=== PATIENT | male | born 1985 | race Caucasian/White ===

== ENCOUNTER 2024-04-05 16:42 | Observation (INO) | payer OTHER ==
--- NOTE | 2024-04-05 18:07 | ED ---
General Adult HPI - General Chief complaint: Abdominal Pain Stated complaint: RT SIDE PAIN Time Seen by Provider: 04/05/24 17:52 Source: patient, RN notes reviewed Mode of arrival: ambulatory Limitations: no limitations - History of Present Illness Initial comments: Patient is a 38-year-old male present to the emergency department with concerns with abdominal discomfort. Onset was yesterday. Discomfort has been somewhat slowly worsening. Discomfort is occasionally positional. Discomfort does worsen with food. Patient did have a little bit of discomfort in the back yesterday however more in the front today and more right upper. Patient did goodwin ve nausea once. No vomiting. Patient may be a little bit constipated, did have a bowel movement today. No diarrhea. No fever. Patient states he does have a distant history of alcohol use - Related Data Allergies Allergy/AdvReac Type Severity Reaction Status Date / Time No Known Allergies Allergy Verified 04/05/24 16:48 Review of Systems ROS Statement: Those systems with pertinent positive or pertinent negative responses have been documented in the HPI. ROS Other: All systems not noted in ROS Statement are negative. Constitutional: Denies: fever Eyes: Denies: as per HPI ENT: Denies: ear pain Respiratory: Denies: cough, dyspnea Cardiovascular: Denies: chest pain Gastrointestinal: Reports: as per HPI, abdominal pain, nausea. Denies: vomiting, diarrhea Past Medical History Past Medical History: No Reported History Past Surgical History: No Surgical Hx Reported Smoking Status: Former smoker Past Alcohol Use History: Occasional Past Drug Use History: None Reported General Exam Limitations: no limitations General appearance: alert, in no apparent distress Head exam: Present: normocephalic Eye exam: Present: normal appearance Respiratory exam: Present: normal lung sounds bilaterally Cardiovascular Exam: Present: regular rate, normal rhythm, normal heart sounds Expanded Peripheral pulses: 2+: Posterior Tibialis (R), Posterior Tibialis (L) GI/Abdominal exam: Present: soft, tenderness (Moderate to severe tenderness right upper quadrant. Mild tenderness epigastric and right mid/lower), normal bowel sounds. Absent: distended, guarding, rebound, rigid, pulsatile mass Extremities exam: Present: normal inspection Back exam: Present: normal inspection. Absent: CVA tenderness (R) Neurological exam: Present: alert Psychiatric exam: Present: normal affect, normal mood Skin exam: Present: normal color Course Vital Signs 04/05/24 04/05/24 16:45 19:43 Temperature 97.8 F Pulse Rate 80 69 Respiratory 16 16 Rate Blood Pressure 160/105 136/77 O2 Sat by Pulse 99 97 Oximetry Medical Decision Making - Medical Decision Making Was pt. sent in by a medical professional or institution (, [facility], AIRCRAFT SYSTEMS TECHNICIAN, urgent care, hospital, or retirement...) When possible be specific @ -No Did you speak to anyone other than the patient for history (EMS, parent, family, police, friend...)? What history was obtained from this source @ -No Did you review nursing and triage notes (agree or disagree)? Why? @ -I reviewed and agree with nursing and triage notes Were old charts reviewed (outside hosp., previous admission, EMS record, old EKG, old radiological studies, urgent care reports/EKG's, retirement records)? Report findings @ -No old charts were reviewed Differential Diagnosis (chest pain, altered mental status, abdominal pain women, abdominal pain men, vaginal bleeding, weakness, fever, dyspnea, syncope, he adache, dizziness, GI bleed, back pain, seizure, CVA, palpatations, mental health, musculoskeletal)? @ -Differential Abdominal Pain Men: Appendicitis, cholecystitis, diverticulosis, ischemic bowel, pancreatitis, hepatitis, UTI, gastroenteritis, AAA, incarcerated hernia, bowel obstruction, constipation, inflammatory bowel, hepatitis, peptic ulcer disease, splenic infarction, perforated viscus, testicular torsion, this is not meant to be an all-inclusive list EKG interpreted by me (3pts min.). @ -As above X-rays interpreted by me (1pt min.). @ -None done CT interpreted by me (1pt min.). @ -CT scan abdomen pelvis does show some mild inflammatory changes near the head of the pancreas U/S interpreted by me (1pt. min.). @ -None done What testing was considered but not performed or refused? (CT, X-rays, U/S, labs)? Why? @ -Ultrasound of the gallbladder and pancreas will be added What meds were considered but not given or refused? Why? @ -None Did you discuss the management of the patient with other professionals (professionals i.e. ISAAC De Luna, AIRCRAFT SYSTEMS TECHNICIAN, lab, RT, psych nurse, social services counselor, source water protection specialist, teacher, housing management officer, telephonic case manager)? Give summary @ -Case discussed with Dr. Angulo who will admit covering hospital call Was smoking cessation discussed for >3mins.? @ -No Was critical care preformed (if so, how long)? @ -No Were there social determinants of health that impacted care today? How? (Homelessness, low income, unemployed, alcoholism, drug addiction, transportation, low edu. Level, literacy, decrease access to med. care, detention, rehab)? @ -No Was there de-escalation of care discussed even if they declined (Discuss DNR or withdrawal of care, Hospice)? DNR status @ -No What co-morbidities impacted this encounter? (DM, HTN, Smoking, COPD, CAD, Cancer, CVA, ARF, Chemo, Hep., AIDS, mental health diagnosis, sleep apnea, morbid obesity)? @ -Distant history of alcohol use Was patient admitted / discharged? Hospital course, mention meds given and route, prescriptions, significant lab abnormalities, going to OR and other pertinent info. @ -Patient presents with abdominal discomfort. CT scan showing mild inflammatory changes near the head of the pancreas. Patient will be admitted for further evaluation and consults. Admission orders written. Patient reevaluated and updated Undiagnosed new problem with uncertain prognosis? @ -No Drug Therapy requiring intensive monitoring for toxicity (Heparin, Nitro, Insulin, Cardizem)? @ -No Were any procedures done? @ -No Diagnosis/symptom? @ abdominal pain Acute, or Chronic, or Acute on Chronic? @ -Acute Uncomplicated (without systemic symptoms) or Complicated (systemic symptoms)? @ -Default Side effects of treatment? @ -No Exacerbation, Progression, or Severe Exacerbation? @ -No Poses a threat to life or bodily function? How? (Chest pain, [place], VA, pneumonia, PE, COPD, DKA, ARF, appy, cholecystitis, CVA, Diverticulitis, Homicidal, Suicidal, threat to staff... and all critical care pts) @ -Threat to pancreatic function - Lab Data Result diagrams: 04/05/24 18:31 04/05/24 18:31 Lab Results 04/05/24 04/05/24 04/05/24 Range/Units 18: 18:31 18:31 WBC 15.8 H (3.8-10.6) k/uL RBC 4.93 (4.30-5.90) m/uL Hgb 15.0 (13.0-17.5) gm/dL Hct 43.7 (39.0-53.0) % MCV 88.8 (80.0-100.0) fL MCH 30.4 (25.0-35.0) pg MCHC 34.3 (31.0-37.0) g/dL RDW 12.2 (11.5-15.5) % Plt Count 310 (150-450) k/uL MPV 6.2 Neutrophils % 76 % Lymphocytes % 17 % Monocytes % 5 % Eosinophils % 1 % Basophils % 0 % Neutrophils # 11.9 H (1.3-7.7) k/uL Lymphocytes # 2.6 (1.0-4.8) k/uL Monocytes # 0.7 (0-1.0) k/uL Eosinophils # 0.2 (0-0.7) k/uL Basophils # 0.1 (0-0.2) k/uL PT 9.8 L (10.0-12.5) sec INR 0.9 (<1.2) APTT 27.5 (22.0-30.0) sec Sodium 135 L (137-145) mmol/L Potassium 4.3 (3.5-5.1) mmol/L Chloride 104 (98-107) mmol/L Carbon Dioxide 24 (22-30) mmol/L Anion Gap 7 mmol/L BUN 19 (9-20) mg/dL Creatinine 0.69 (0.66-1.25) mg/dL Est GFR (CKD-EPI)AfAm >90 (>60 ml/min/1.73 sqM) Est GFR (CKD-EPI)NonAf >90 (>60 ml/min/1.73 sqM) Glucose 96 (74-99) mg/dL Calcium 9.4 (8.4-10.2) mg/dL Total Bilirubin 0.5 (0.2-1.3) mg/dL AST 34 (17-59) U/L ALT 33 (4-49) U/L Alkaline Phosphatase 107 (38-126) U/L Total Protein 7.6 (6.3-8.2) g/dL Albumin 4.8 (3.5-5.0) g/dL Amylase 59 (30-110) U/L Lipase 63 (23-300) U/L Urine Color Urine Appearance (Clear) Urine pH (5.0-8.0) Ur Specific [place] (1.001-1.035) Urine Protein (Negative) Urine Glucose (UA) (Negative) Urine Ketones (Negative) Urine Blood (Negative) Urine Nitrite (Negative) Urine Bilirubin (Negative) Urine Urobilinogen (<2.0) mg/dL Ur Leukocyte Esterase (Negative) 04/05/24 Range/Units 18:58 WBC (3.8-10.6) k/uL RBC (4.30-5.90) m/uL Hgb (13.0-17.5) gm/dL Hct (39.0-53.0) % MCV (80.0-100.0) fL MCH (25.0-35.0) pg MCHC (31.0-37.0) g/dL RDW (11.5-15.5) % Plt Count (150-450) k/uL MPV Neutrophils % % Lymphocytes % % Monocytes % % Eosinophils % % Basophils % % Neutrophils # (1.3-7.7) k/uL Lymphocytes # (1.0-4.8) k/uL Monocytes # (0-1.0) k/uL Eosinophils # (0-0.7) k/uL Basophils # (0-0.2) k/uL PT (10.0-12.5) sec INR (<1.2) APTT (22.0-30.0) sec Sodium (137-145) mmol/L Potassium (3.5-5.1) mmol/L Chloride (98-107) mmol/L Carbon Dioxide (22-30) mmol/L Anion Gap mmol/L BUN (9-20) mg/dL Creatinine (0.66-1.25) mg/dL Est GFR (CKD-EPI)AfAm (>60 ml/min/1.73 sqM) Est GFR (CKD-EPI)NonAf (>60 ml/min/1.73 sqM) Glucose (74-99) mg/dL Calcium (8.4-10.2) mg/dL Total Bilirubin (0.2-1.3) mg/dL AST (17-59) U/L ALT (4-49) U/L Alkaline Phosphatase (38-126) U/L Total Protein (6.3-8.2) g/dL Albumin (3.5-5.0) g/dL Amylase (30-110) U/L Lipase (23-300) U/L Urine Color Colorless Urine Appearance Clear (Clear) Urine pH 5.0 (5.0-8.0) Ur Specific [place] 1.014 (1.001-1.035) Urine Protein Negative (Negative) Urine Glucose (UA) Negative (Negative) Urine Ketones Negative (Negative) Urine Blood Negative (Negative) Urine Nitrite Negative (Negative) Urine Bilirubin Negative (Negative) Urine Urobilinogen <2.0 (<2.0) mg/dL Ur Leukocyte Esterase Negative (Negative) Disposition Clinical Impression: Abdominal pain Disposition: ADMITTED IP TO THIS HOSP Is patient prescribed a controlled substance at d/c from ED?: No Referrals: None,Stated [Primary Care Provider] - 1-2 days Time of Disposition: 20:03
[2024-04-05 18:42] LABS: Basophils # (A) 0.1 k/uL (0-0.2); Basophils % (A) 0 %; Eosinophils # (A) 0.2 k/uL (0-0.7); Eosinophils % (A) 1 %; HCT 43.7 % (39.0-53.0); Lymphocytes # (A) 2.6 k/uL (1.0-4.8); Lymphocytes % (A) 17 %; MCH 30.4 pg (25.0-35.0); MCHC 34.3 g/dL (31.0-37.0); MCV 88.8 fL (80.0-100.0); Mean Platelet Volume 6.2; Monocytes # (A) 0.7 k/uL (0-1.0); Monocytes % (A) 5 %; Neutrophils # (A) 11.9 k/uL (1.3-7.7); Neutrophils % (A) 76 %; Platelet Count 310 k/uL (150-450); RBC 4.93 m/uL (4.30-5.90); RDW 12.2 % (11.5-15.5); WBC 15.8 k/uL (3.8-10.6)
[2024-04-05 18:49] LABS: INR 0.9 (<1.2); Partial Thromboplastin Time 27.5 sec (22.0-30.0); Prothrombin Time 9.8 sec (10.0-12.5)
[2024-04-05] MEDS: METOCLOPRAMIDE 5 MG/ML 2 ML VIAL IVP STA (18:51)
[2024-04-05] MEDS: FAMOTIDINE 20 MG/2 ML VIAL IV STA (18:51)
[2024-04-05] MEDS: KETOROLAC 15 MG/ML 1 ML VIAL IVP STA (18:51)
[2024-04-05 18:52] LABS: ALT 33 U/L (4-49); AST 34 U/L (17-59); African American GFR (CKD) >90 (>60 ml/min/1.73 sqM); Albumin 4.8 g/dL (3.5-5.0); Alkaline Phosphatase 107 U/L (38-126); Amylase 59 U/L (30-110); Anion Gap 7 mmol/L; Blood Urea Nitrogen 19 mg/dL (9-20); Calcium 9.4 mg/dL (8.4-10.2); Carbon Dioxide 24 mmol/L (22-30); Chloride 104 mmol/L (98-107); Glucose 96 mg/dL (74-99); Lipase 63 U/L (23-300); Non-African American GFR(CKD) >90 (>60 ml/min/1.73 sqM); Potassium 4.3 mmol/L (3.5-5.1); Sodium 135 mmol/L (137-145); Total Bilirubin 0.5 mg/dL (0.2-1.3); Total Protein 7.6 g/dL (6.3-8.2)
--- NOTE | 2024-04-05 19:03 | CT ---
EXAMINATION TYPE: CT abdomen pelvis wo con DATE OF EXAM: 04/05/2024 6:51 PM COMPARISON: None available. CLINICAL INDICATION: Male, 38 years old with history of abdominal pain; Right side flank pain, consti pation TECHNIQUE: Axial CT abdomen pelvis wo con;Sagittal and coronal reformats were created on a separate workstation. CT DLP: 975.5 mGycm, Automated exposure control for dose reduction was used. FINDINGS: LOWER CHEST: Unremarkable ABDOMEN Intraparenchymal hypoattenuating suggesting steatosis. No discrete liver lesion within the limitation of noncontrast study. Spleen normal in size and morphology. No suspicious adrenal gland nodule. Subt le fat stranding/inflammation surrounding the region of the pancreatic head/uncinate process. Cannot evaluate for pancreatic necrosis given lack of IV contrast. Small bowel enteritis would be considered a less likely diagnostic differential consideration. No associated pancreatic ductal dilatation. No abnormal biliary ductal dilatation. No evidence of nephrolithiasis or urolithiasis. No significant hy dronephrosis or hydroureter. Abdominal aorta normal in caliber. Imaging through the gastrointestinal tract demonstrates moderate diffuse colonic stool burden. Coloni c diverticulosis without acute diverticulitis. No evidence of small bowel obstruction. Stomach underd istended but otherwise unremarkable. No evidence of significant free fluid or free air in the abdomen/pelvis. No pathologic retroperitonea l lymphadenopathy. Uterus bladder unremarkable. Prostate gland within normal limits for size. No acute osseous abnormality. IMPRESSION: 1. Subtle fat stranding/mesenteric inflammation surrounding the region of the pancreatic head/uncina te process, possibly reflecting acute interstitial edematous pancreatitis in the appropriate clinical setting. Recommend correlation with lipase values. 2. Hepatic steatosis. 3. Chronic diverticulosis. 4. No evidence of nephrolithiasis, urolithiasis or hydronephrosis. [facility], , 04/05/2024 7:00 PM
[2024-04-05 19:13] LABS: Appearance,Urine Clear (Clear); Bilirubin,Urine Negative (Negative); Blood,Urine Negative (Negative); Color,Urine Colorless; Glucose,Urine (UA) Negative (Negative); Ketones,Urine Negative (Negative); Leukocyte Esterase,Urine Negative (Negative); Nitrite,Urine Negative (Negative); Protein,Urine Negative (Negative); Specific Gravity,Urine 1.014 (1.001-1.035); Urobilinogen,Urine <2.0 mg/dL (<2.0)
[2024-04-05] MEDS ORDERED: NALOXONE 0.4 MG/ML 1 ML VIAL IV PRN (20:03)
[2024-04-05] MEDS ORDERED: HYDROmorphone 1 MG/ML 1 ML SYRINGE IVP PRN (20:03)
[2024-04-05] MEDS: PANTOPRAZOLE 40 MG/10 ML VIAL IV SCH (20:31)
[2024-04-05] MEDS: SODIUM CHLORIDE 0.9% 1,000 ML IV SCH (20:41)
[2024-04-05] MEDS: LACTATED RINGERS 1,000 ML IV SCH (20:42)
--- NOTE | 2024-04-05 21:01 | P.HPIM ---
History of Present Illness H&P Date: 04/05/24 History of present illness; 38-year-old man with no significant past medical history presents to the emergency department with new onset abdominal discomfort. Patient states the pain began yesterday and the discomfort has been continually worsening. He describes the discomfort as worsening with food, and occasionally related to position. He first noticed the pain yesterday in his back, however today it has been in the front of his abdomen. He states this morning it was his entire abdomen as the day progressed it was localized more so to the right side, right middle and lower quadrant of his abdomen specifically. He states that at its worst the pain was 8/10 however at this current moment he rates it as a 2/10. He notes that he feels as though he has been constipated, and has been unable to have a bowel movement for a few days even though he has been attempting to do so. He has never had symptoms similar to this before. He states that he was formerly a "very heavy" drinker in which he would drink 1/2 gallon every weekend, and some weeks he would drink on a daily basis. This period of his life lasted for 3+ years. Reports having quit heavy alcohol use several years ago. Patient has no current complaints at this time and has requested being able to eat some food. Labratory review: -WBCs 15.8, Hgb 15, hct 43.7, PLT 310; sodium 135, potassium 4.3, BUN 19, creatinine 0.69, AST 34, ALT 33, alkaline phosphatase 107, total bilirubin 0.5, amylase 59, lipase 63 -UA noncontributory Imaging: -CT abdomen/pelvis showed subtle fat stranding/mesenteric inflammation surrounding the region of the pancreatic head/uncinate process, possibly reflecting acute interstitial edematous pancreatitis in the appropriate clinical setting; hepatic steatosis; chronic diverticulosis; no evidence of nephrolithiasis, urolithiasis or hydronephrosis Vitals: -Blood pressure 136/77, heart rate 69, respiratory rate 16, SpO2 97% on room air Patient admitted to internal medicine service REVIEW OF SYSTEMS: CONSTITUTIONAL: No fever, no malaise, no fatigue. HEENT: No recent visual problems or hearing problems. Denied any sore throat. CARDIOVASCULAR: No chest pain, orthopnea, PND, no palpitations, no syncope. PULMONARY: No shortness of breath, no cough, no hemoptysis. GASTROINTESTINAL: No diarrhea. States on and off nausea for the past day. No vomiting. Endorses a couple of days of constipation. NEUROLOGICAL: No headaches, no weakness, no numbness. HEMATOLOGICAL: Denies any bleeding or petechiae. GENITOURINARY: Denies any burning micturition, frequency, or urgency. MUSCULOSKELETAL/RHEUMATOLOGICAL: Denies any joint pain, swelling, or any muscle pain. ENDOCRINE: Denies any polyuria or polydipsia. The rest of the 14-point review of systems is negative. PHYSICAL EXAMINATION: GENERAL: The patient is alert and oriented x3, not in any acute distress. Well developed, well nourished. HEENT: No scleral icterus. No conjunctival pallor. Normocephalic, atraumatic. CARDIOVASCULAR: S1 and S2 present. No murmurs, rubs, or gallops. PULMONARY: Chest is clear to auscultation, no wheezing or crackles. ABDOMEN: Soft, nondistended, normoactive bowel sounds. No palpable organomegaly. Tenderness to palpation on the right upper quadrant and right lower quadrant MUSCULOSKELETAL: No joint swelling or deformity. EXTREMITIES: No cyanosis, clubbing, or pedal edema. NEUROLOGICAL: Gross neurological examination did not reveal any focal deficits. SKIN: No rashes. Assessment and plan 38-year-old male with new onset abdominal discomfort presents to the emergency department for further evaluation. Discussed the patient with the emergency department and excepted the admission for further evaluation of this abdominal pain. # Abdominal pain, suspect acute pancreatitis -Amylase 59, lipase 63 -CT abdomen/pelvis showed subtle fat stranding/mesenteric inflammation surrounding the region of the pancreatic head/uncinate process, possibly reflecting acute interstitial edematous pancreatitis -Gallbladder ultrasound currently pending -Triglycerides currently pending -Continue with lactated Ringer's 130 cc/h -Monitor urine output (>0.51 cc/kg/h) -Currently on clear liquid diet; advance to full diet as soon as tolerated -Continue to monitor electrolytes -Continue pain control with Dilaudid as needed -Continue with Protonix 40 mg IV daily -Obtain GI consult and consider Gen Surg consult pending US #Constipation -Start patient on Miralax as needed GI prohylaxis: Protonix 40 mg IV daily DVT prophylaxis: Heparin Subq Dictation was produced using [employer] software. please excuse any grammatical, word or spelling errors. Past Medical History Past Medical History: No Reported History Past Surgical History: No Surgical Hx Reported Smoking Status: Former smoker Past Alcohol Use History: Occasional Past Drug Use History: None Reported Medications and Allergies Home Medications Medication Instructions Recorded Confirmed Type No Known Home Medications 04/05/24 04/05/24 History Allergies Allergy/AdvReac Type Severity Reaction Status Date / Time No Known Allergies Allergy Verified 04/05/24 20:44 Physical Exam Vitals: Vital Signs Temp Pulse Resp BP Pulse Ox 04/05/24 19:43 69 16 136/77 97 04/05/24 16:45 97.8 F 80 16 160/105 99 Intake and Output 04/05/24 04/05/24 04/05/24 06:59 14:59 22:59 Other: Weight 104.326 kg Results CBC & Chem 7: 04/05/24 18:31 04/05/24 18:31 Labs: Abnormal Lab Results - Last 24 Hours (Table) 04/05/24 04/05/24 04/05/24 Range/Units 18:31 18:31 18:31 WBC 15.8 H (3.8-10.6) k/uL Neutrophils # 11.9 H (1.3-7.7) k/uL PT 9.8 L (10.0-12.5) sec Sodium 135 L (137-145) mmol/L
--- NOTE | 2024-04-05 21:29 | US ---
EXAMINATION TYPE: US gallbladder DATE OF EXAM: 04/05/2024 COMPARISON: CT today CLINICAL INDICATION: Male, 38 years old with history of pain, include pancreas; Patient states right sided abd pain since today. Slight nausea TECHNIQUE: Grayscale and color Doppler imaging of the right upper quadrant was performed. FINDINGS: EXAM MEASUREMENTS: Liver Length: 14.2 cm Gallbladder Wall: 0.2 cm CBD: 0.3 cm Right Kidney: 10.5 x 4.9 x 5.3 cm NUTRITION TEACHER NOTES: slightly limited due to overlying bowel gas Pancreas: Visualized portions appear slightly echogenic. The joint is not well visualized due to sha dowing bowel gas. Liver: wnl Gallbladder: wnl Evidence for sonographic Marquez's sign: No CBD: wnl Right Kidney: wnl IMPRESSION: No sonographic evidence of an acute abnormality in the right upper quadrant. Pancreas not well visual ized due to shadowing bowel gas. Recommend correlation with lipase values if there is underlying clin ical concern for acute pancreatitis. [facility], , 04/05/2024 9:26 PM
[2024-04-05] MEDS: HEPARIN SODIUM,PORCINE 5,000 UNIT/ML 1 ML VIAL SQ SCH (23:21)
[2024-04-05] MEDS: HYDROmorphone 0.5 MG/0.5 ML SYRINGE IVP PRN (23:39)
[2024-04-06] MEDS: ONDANSETRON 4 MG/2 ML VIAL IVP PRN (04:26)
[2024-04-06] MEDS: polyethylene glycoL 3350 17 GM POWD.PACK PO SCH (08:26)
[2024-04-06] MEDS: ACETAMINOPHEN TAB 325 MG TAB PO PRN (08:30)
[2024-04-06 09:00] LABS: ALT 27 U/L (10-49); AST 28 U/L (14-35); Albumin 4.4 g/dL (3.8-4.9); Albumin/Globulin Ratio 1.83 Ratio (1.60-3.17); Alkaline Phosphatase 110 U/L (41-126); Amylase 59 U/L (23-121); BUN/Creat Ratio 18.25 Ratio (12.00-20.00); Blood Urea Nitrogen 14.6 mg/dL (9.0-27.0); Calcium 9.3 mg/dL (8.7-10.3); Carbon Dioxide 21.1 mmol/L (21.6-31.8); Chloride 105 mmol/L (96-109); Globulin 2.4 g/dL (1.6-3.3); Glucose 122 mg/dL (70-110); LDH 162 U/L (120-246); Lipase 25 U/L (14-60); Sodium 138 mmol/L (135-145); Total Bilirubin 0.4 mg/dL (0.3-1.2); Total Protein 6.8 g/dL (6.2-8.2)
[2024-04-06] MEDS: PROCHLORPERAZINE INJ 10 MG/2 ML VIAL IVP PRN (09:36)
[2024-04-06] MEDS: EZETIMIBE 10 MG TAB PO SCH (09:36)
[2024-04-06 10:18] LABS: Basophils # (A) 0.05 X 10*3/uL (0.00-0.10); Basophils % (A) 0.4 %; Eosinophils # (A) 0.11 X 10*3/uL (0.04-0.35); Eosinophils % (A) 0.8 %; HCT 42.6 % (39.6-50.0); HGB 14.8 g/dL (13.0-17.0); Lymphocytes % (A) 19.3 %; MCH 30.7 pg (27.0-32.0); MCHC 34.7 g/dL (32.0-37.0); MCV 88.4 FL (80.0-97.0); Mean Platelet Volume 8.9 FL (9.5-12.2); Monocytes # (A) 1.27 X 10*3/uL (0.20-1.00); Monocytes % (A) 9.1 %; NRBC Per 100 WBC 0 X 10*3/uL (0.00-0.01); Neutrophils # (A) 9.84 X 10*3/uL (1.80-7.70); Platelet Count 316 X 10*3/uL (140-440); RBC 4.82 X 10*6/uL (4.40-5.60); RDW 12.3 % (11.5-14.5); WBC 14.02 X 10*3/uL (4.50-10.00)
--- NOTE | 2024-04-06 11:31 | P.PN ---
Subjective Progress Note Date: 04/06/24 38-year-old man with no significant past medical history presents to the emergency department with new onset abdominal discomfort. Patient states the pain began yesterday and the discomfort has been continually worsening. He describes the discomfort as worsening with food, and occasionally related to pos ition. He first noticed the pain yesterday in his back, however today it has been in the front of his abdomen. He states this morning it was his entire abdomen as the day progressed it was localized more so to the right side, right middle and lower quadrant of his abdomen specifically. He states that at its worst the pain was 8/10 however at this current moment he rates it as a 2/10. He notes that he feels as though he has been constipated, and has been unable to have a bowel movement for a few days even though he has been attempting to do so. He has never had symptoms similar to this before. He states that he was formerly a "very heavy" drinker in which he would drink 1/2 gallon every weekend, and some weeks he would drink on a daily basis. This period of his life lasted for 3+ years. Reports having quit heavy alcohol use several years ago. Patient has no current complaints at this time and has requested being able to eat some food. Labratory review: -WBCs 15.8, Hgb 15, hct 43.7, PLT 310; sodium 135, potassium 4.3, BUN 19, creatinine 0.69, AST 34, ALT 33, alkaline phosphatase 107, total bilirubin 0.5, amylase 59, lipase 63 -UA noncontributory Imaging: -CT abdomen/pelvis showed subtle fat stranding/mesenteric inflammation surrounding the region of the pancreatic head/uncinate process, possibly reflecting acute interstitial edematous pancreatitis in the appropriate clinical setting; hepatic steatosis; chronic diverticulosis; no evidence of nephrolithiasis, urolithiasis or hydronephrosis 04/06/2024 patient seen and examined at bedside. Patient reported abdominal pain has decreased in intensity from admission with pain medication and notes the intensity is led 2/10 without any radiation. He is also experiencing a slight headache that is bitemporal but is nonradiating and had an episode of vomiting that was watery bilious. Vitals overnight were stable. WBC 14.02 hemoglobin 14.8 platelet count 316,000 sodium 138 potassium 4 chloride 105 bicarbonate 21.1 BUN 14.6 creatinine 0.8 glucose 122 plasma lactic acid 0.7 calcium 9.3 ALP 110 AST 28 ALT 28 albumin 4.4 triglyceride 1177 gallbladder ultrasound showed no acute evidence of gallbladder abnormality GENERAL: The patient is alert and oriented x3, not in any acute distress. Well developed, well nourished. HEENT: No scleral icterus. No conjunctival pallor. Normocephalic, atraumatic. CARDIOVASCULAR: S1 and S2 present. No murmurs, rubs, or gallops. PULMONARY: Chest is clear to auscultation, no wheezing or crackles. ABDOMEN: Soft, nondistended, normoactive bowel sounds. No palpable organomegaly. Tenderness to deep palpation on the right upper quadrant and right lower quadrant MUSCULOSKELETAL: No joint swelling or deformity. EXTREMITIES: No cyanosis, clubbing, or pedal edema. NEUROLOGICAL: Gross neurological examination did not reveal any focal deficits. SKIN: No rashes. Assessment and plan 38-year-old male with new onset abdominal discomfort presents to the emergency department for further evaluation. Discussed the patient with the emergency department and excepted the admission for further evaluation of this abdominal pain. CT scan abdomen and elevated triglycerides with patient presentation align with acute pancreatitis # Hypertriglyceridemia-induced acute pancreatitis Amylase 59, lipase 63. Patient experiencing right upper and right lower quadrant pain. CT abdomen/pelvis showed subtle fat stranding/mesenteric inflammation surrounding the region of the pancreatic head/uncinate process, possibly reflecting acute interstitial edematous pancreatitis. Triglyceride 1177 which is very elevated -Gallbladder ultrasound no acute evidence of gallbladder abnormality -Continue with lactated Ringer's 130 cc/h -Monitor urine output (>0.51 cc/kg/h) -Downgrade to n.p.o. advance to full diet as soon as tolerated -BMP and CBC at the a.m. -Ezetimibe 10 mg p.o. daily -Compazine 5 mg IV push every 4 hours as needed for nausea and vomiting -Ondansetron 4 mg IV push every 8 hours as needed for vomiting -Continue pain control with Dilaudid as needed -Continue with Protonix 40 mg IV daily -Obtain GI consult and consider Gen Surg consult #Constipation -Start patient on Miralax as needed GI prohylaxis: Protonix 40 mg IV daily DVT prophylaxis: Heparin Subq I saw and evaluated the patient during the navarro and critical portions of this encounter, and discussed the case in detail with the resident author of this note, I agree with the Assessment and Plan, and my changes, if any, are highlighted in blue. Objective - Vital Signs Vital signs: Vital Signs Temp 97.7 F 04/06/24 05:22 Pulse 73 04/06/24 05:22 Resp 17 04/06/24 05:22 BP 132/84 04/06/24 05:22 Pulse Ox 97 04/06/24 05:22 FiO2 Intake & Output 04/05/24 04/06/24 04/06/24 18:59 06:59 18:59 Weight 104.326 kg 104.326 kg Other: # Voids 1 - Labs CBC & Chem 7: 04/06/24 05:14 04/06/24 05:14 Labs: Abnormal Lab Results - Last 24 Hours (Table) 04/05/24 04/05/24 04/05/24 Range/Units 18:31 18:31 18:31 WBC 15.8 H (3.8-10.6) k/uL Neutrophils # 11.9 H (1.3-7.7) k/uL PT 9.8 L (10.0-12.5) sec Sodium 135 L (137-145) mmol/L Triglycerides (0.00-149.00) mg/dL 04/05/24 Range/Units 20:50 WBC (3.8-10.6) k/uL Neutrophils # (1.3-7.7) k/uL PT (10.0-12.5) sec Sodium (137-145) mmol/L Triglycerides 1177.00 H (0.00-149.00) mg/dL
--- NOTE | 2024-04-06 14:25 | P.GSCN ---
History of Present Illness Consult date: 04/06/24 History of present illness: CHIEF COMPLAINT: Abdominal pain HISTORY OF PRESENT ILLNESS: This is a 38-year-old male who presented to the hospital with right sided abdominal pain that started around 2:00 yesterday. Patient reports that the pain initially was epigastric and then moved to the right side of the abdomen and pain in the back. He does report that pain was worse after eating. He had been having nausea and vomiting. He also has been having issues with constipation. CAT scan had reported fat stranding and inflammation at the pancreatic head. Patient denies any prior history of pancreatitis. Ultrasound the gallbladder showed normal gallbladder. Patient does report having a past history of heavy alcohol use the last time he drank heavily was probably about 2 years ago per patient. Patient seen and examined with Dr. Nielson PAST MEDICAL HISTORY: none PAST SURGICAL HISTORY: Denies any prior abdominal surgeries MEDICATIONS: See below ALLERGIES: See below SOCIAL HISTORY: No illicit drug use. REVIEW OF SYSTEMS: CONSTITUTIONAL: Denies fever or chills. HEENT: Denies blurred vision, vision changes, or eye pain. Denies hemoptysis CARDIOVASCULAR: Denies chest pain or pressure. RESPIRATORY: No shortness of breath. GASTROINTESTINAL: See HPI for pertinent findings HEMATOLOGIC: Denies bleeding disorders. GENITOURINARY: Denies any blood in urine or increased urinary frequency. SKIN: Denies pruitis. Denies rash. PHYSICAL EXAM: VITAL SIGNS: Reviewed GENERAL: Well-developed in no acute distress. HEENT: No sclera icterus. Extraocular movements grossly intact. Moist buccal mucosa. Head is atraumatic, normocephalic. No nasal drainage. ABDOMEN: Soft. Nondistended. Mild discomfort epigastric area with palpation and right side of the abdomen NEUROLOGIC: Alert and oriented. Cranial nerves II through XII grossly intact. LABORATORY DATA: WBC is down from 15.8-14 Hgb 14.8 platelets 316 Sodium 138 potassium is 4.0 creatinine 0.8 Lipase and LFTs within normal range IMAGING: CT scan abdomen pelvis reports subtle fat stranding/mesenteric inflammation surrounding the region of the pancreatic head possibly reflecting acute interstitial edematous pancreatitis. Hepatic steatosis. Chronic diverticulosis Gallbladder ultrasound no acute abnormality in the right upper quadrant ASSESSMENT: 1. Acute pancreatitis with CAT scan findings of subtle fat stranding mesenteric inflammation around the region of the pancreatic head 2. Abdominal pain PLAN: -HIDA scan ordered for further evaluation of gallbladder function -GI is on consult. Will await their further recommendations -Continue IV fluids Physician Electric Sign Wire[employer] note has been reviewed by physician. Signing provider agrees with the documented findings, assessment, and plan of care. Past Medical History Past Medical History: No Reported History History of Any Multi-Drug Resistant Organisms: None Reported Past Surgical History: No Surgical Hx Reported Past Anesthesia/Blood Transfusion Reactions: No Reported Reaction Smoking Status: Former smoker Past Alcohol Use History: None Reported, Occasional Past Drug Use History: None Reported Medications and Allergies Home Medications Medication Instructions Recorded Confirmed Type No Known Home Medications 04/05/24 04/05/24 History Allergies Allergy/AdvReac Type Severity Reaction Status Date / Time No Known Allergies Allergy Verified 04/05/24 20:44 Surgical - Exam Vital Signs Temp Pulse Resp BP Pulse Ox 97.8 F 80 16 160/105 99 04/05/24 16:45 04/05/24 16:45 04/05/24 16:45 04/05/24 16:45 04/05/24 16:45 Results - Labs 04/06/24 05:14 04/06/24 05:14 Abnormal Lab Results - Last 24 Hours (Table) 04/05/24 04/05/24 04/05/24 Range/Units 18:31 18:31 18:31 WBC 15.8 H (3.8-10.6) k/uL MPV (9.5-12.2) FL Immature Gran # (0.00-0.04) X 10*3/uL Neutrophils # 11.9 H (1.3-7.7) k/uL Monocytes # (0.20-1.00) X 10*3/uL PT 9.8 L (10.0-12.5) sec Sodium 135 L (137-145) mmol/L Carbon Dioxide (21.6-31.8) mmol/L Glucose (70-110) mg/dL Triglycerides (0.00-149.00) mg/dL 04/05/24 04/06/24 04/06/24 Range/Units 20:50 05:14 05:14 WBC 14.02 H (3.8-10.6) k/uL MPV 8.9 L (9.5-12.2) FL Immature Gran # 0.05 H (0.00-0.04) X 10*3/uL Neutrophils # 9.84 H (1.3-7.7) k/uL Monocytes # 1.27 H (0.20-1.00) X 10*3/uL PT (10.0-12.5) sec Sodium (137-145) mmol/L Carbon Dioxide 21.1 L (21.6-31.8) mmol/L Glucose 122 H (70-110) mg/dL Triglycerides 1177.00 H (0.00-149.00) mg/dL Diabetes panel 04/05/24 04/05/24 04/06/24 Range/Units 18:31 20:50 05:14 Sodium 135 L 138 (137-145) mmol/L Potassium 4.3 4.0 (3.5-5.1) mmol/L Chloride 104 105 (98-107) mmol/L Carbon Dioxide 24 21.1 L (22-30) mmol/L BUN 19 14.6 (9-20) mg/dL Creatinine 0.69 0.8 (0.66-1.25) mg/dL Glucose 96 122 H (74-99) mg/dL Calcium 9.4 9.3 (8.4-10.2) mg/dL AST 34 28 (17-59) U/L ALT 33 27 (4-49) U/L Alkaline Phosphatase 107 110 (38-126) U/L Total Protein 7.6 6.8 (6.3-8.2) g/dL Albumin 4.8 4.4 (3.5-5.0) g/dL Triglycerides 1177.00 H (0.00-149.00) mg/dL Calcium panel 04/05/24 04/06/24 Range/Units 18:31 05:14 Calcium 9.4 9.3 (8.4-10.2) mg/dL Albumin 4.8 4.4 (3.5-5.0) g/dL Pituitary panel 04/05/24 04/06/24 Range/Units 18:31 05:14 Sodium 135 L 138 (137-145) mmol/L Potassium 4.3 4.0 (3.5-5.1) mmol/L Chloride 104 105 (98-107) mmol/L Carbon Dioxide 24 21.1 L (22-30) mmol/L BUN 19 14.6 (9-20) mg/dL Creatinine 0.69 0.8 (0.66-1.25) mg/dL Glucose 96 122 H (74-99) mg/dL Calcium 9.4 9.3 (8.4-10.2) mg/dL Adrenal panel 04/05/24 04/06/24 Range/Units 18:31 05:14 Sodium 135 L 138 (137-145) mmol/L Potassium 4.3 4.0 (3.5-5.1) mmol/L Chloride 104 105 (98-107) mmol/L Carbon Dioxide 24 21.1 L (22-30) mmol/L BUN 19 14.6 (9-20) mg/dL Creatinine 0.69 0.8 (0.66-1.25) mg/dL Glucose 96 122 H (74-99) mg/dL Calcium 9.4 9.3 (8.4-10.2) mg/dL Total Bilirubin 0.5 0.4 (0.2-1.3) mg/dL AST 34 28 (17-59) U/L ALT 33 27 (4-49) U/L Alkaline Phosphatase 107 110 (38-126) U/L Total Protein 7.6 6.8 (6.3-8.2) g/dL Albumin 4.8 4.4 (3.5-5.0) g/dL
--- NOTE | 2024-04-06 15:42 | P.CONS ---
History of Present Illness - Reason for Consult Consult date: 04/06/24 Pancreatitis Requesting physician: Dre Jones - Chief Complaint Abdominal pain - History of Present Illness This a pleasant 38-year-old male who presented to the emergency department yesterday with complaints of abdominal pain that started 2 days ago. He states that pain was an acute onset. He has no history of previous similar symptoms. He had a CT scan of the abdomen pelvis that showed inflammation around the head of the pancreas consistent with pancreatitis. Gastroenterology was consulted for pancreatitis. He denies any alcohol use at this time. States he was a heavy drinker about 2 years ago mostly on the weekends. He denies any previous history of pancreatitis. No new medications that he has been on. Amylase and lipase were within normal limits. He did have elevated triglycerides of 1177. Liver enzymes were normal. He had associated nausea and vomiting most of the abdominal pain is in the mid to right lower abdomen. Review of Systems REVIEW OF SYSTEMS: CARDIOPULMONARY: No chest pain or shortness of breath. Gastrointestinal: Abdominal pain associated up with nausea and vomiting. No hematemesis, coffee-ground emesis. No rectal bleeding, or melena. GENITOURINARY: No dysuria or hematuria. MUSCULOSKELETAL: Reports normal range of motion., Joint pain. SKIN: No rashes. No jaundice. ENDOCRINE: No chills, fevers. No excessive weight gain or loss. No polydipsia or polyuria. PSYCHIATRIC: Unremarkable. NEUROLOGY: No change in mental status. Denies dizziness, headache. ENT: Vision unremarkable. CONSTITUTIONAL: No recent weight loss. No fever, chills, night sweats. Past Medical History Past Medical History: No Reported History History of Any Multi-Drug Resistant Organisms: None Reported Past Surgical History: No Surgical Hx Reported Past Anesthesia/Blood Transfusion Reactions: No Reported Reaction Smoking Status: Former smoker Past Alcohol Use History: None Reported, Occasional Past Drug Use History: None Reported Medications and Allergies Home Medications Medication Instructions Recorded Confirmed Type No Known Home Medications 04/05/24 04/05/24 History Allergies Allergy/AdvReac Type Severity Reaction Status Date / Time No Known Allergies Allergy Verified 04/05/24 20:44 Physical Exam Vitals: Vital Signs Temp Pulse Pulse Resp BP BP Pulse Ox 04/06/24 07:00 98.0 F 68 17 123/78 97 04/06/24 05:22 97.7 F 73 17 132/84 97 04/06/24 04:32 103 H 14 131/92 99 04/06/24 01:04 89 16 119/68 98 04/05/24 23:41 98.3 F 04/05/24 23:23 79 16 125/90 99 04/05/24 22:00 73 16 127/95 99 04/05/24 20:00 74 18 129/82 98 04/05/24 19:43 69 16 136/77 97 04/05/24 16:45 97.8 F 80 16 160/105 99 Intake and Output 04/05/24 04/06/24 04/06/24 22:59 06:59 14:59 Intake Total 0 Balance 0 Intake: Oral 0 Other: # Voids 1 Weight 104.326 kg 104.326 kg General appearance: The patient is alert, oriented, appears in no acute distress. HET: Head is normocephalic and atraumatic. Conjunctiva pink. Sclera anicteric. Neck: Supple without lymphadenopathy. Trachea midline. Heart: Regular. Lungs: Equal expansion, normal respiratory effort. Abdomen: Soft, right mid and lower abdominal tenderness as well as epigastric tenderness, nondistended. Skin: No rashes. No jaundice. Extremities: Normal skin color and turgor. No pedal edema. Neurological: No focal deficits. Alert and oriented x3. Results CBC & Chem 7: 04/06/24 05:14 04/06/24 05:14 Labs: Abnormal Lab Results - Last 24 Hours (Table) 04/05/24 04/05/24 04/05/24 Range/Units 18:31 18:31 18:31 WBC 15.8 H (3.8-10.6) k/uL MPV (9.5-12.2) FL Immature Gran # (0.00-0.04) X 10*3/uL Neutrophils # 11.9 H (1.3-7.7) k/uL Monocytes # (0.20-1.00) X 10*3/uL PT 9.8 L (10.0-12.5) sec Sodium 135 L (137-145) mmol/L Carbon Dioxide (21.6-31.8) mmol/L Glucose (70-110) mg/dL Triglycerides (0.00-149.00) mg/dL 04/05/24 04/06/2424 Range/Units 20:50 05:14 05:14 WBC 14.02 H (3.8-10.6) k/uL MPV 8.9 L (9.5-12.2) FL Immature Gran # 0.05 H (0.00-0.04) X 10*3/uL Neutrophils # 9.84 H (1.3-7.7) k/uL Monocytes # 1.27 H (0.20-1.00) X 10*3/uL PT (10.0-12.5) sec Sodium (137-145) mmol/L Carbon Dioxide 21.1 L (21.6-31.8) mmol/L Glucose 122 H (70-110) mg/dL Triglycerides 1177.00 H (0.00-149.00) mg/dL Comments: CT abdomen pelvis without contrast reported subtle fat stranding/mesenteric inflammation surrounding the region of the pancreatic head/connate process, possibly reflecting acute interstitial edematous pancreatitis in the appropriate clinical setting. Recommend correlation with lipase values. Hepatic steatosis. Chronic diverticulosis. No evidence of nephrolithiasis or urolithiasis or hydronephrosis. Gallbladder ultrasound reports no sonographic evidence of an acute abnormality in the right upper quadrant. Pancreas not well-visualized due to shadow bowel gas. Recommend correlation with lipase values if there is underlying clinical concern for acute pancreatitis. Assessment and Plan (1) Pancreatitis Narrative/Plan: 38-year-old male presenting with abdominal pain with CT evidence of acute pancreatitis with elevated triglycerides. Acute pancreatitis likely secondary to hypertriglyceridemia. Continue with treatment for elevated triglycerides. Discussed with patient importance of establishing with a PCP for outpatient surveillance of triglycerides. Current Visit: Yes Status: Acute Code(s): K85.90 - ACUTE PANCREATITIS WITHOUT NECROSIS OR INFECTION, UNSP SNOMED Code(s): 79799845 (2) Abdominal pain Current Visit: Yes Status: Acute Code(s): R10.9 - UNSPECIFIED ABDOMINAL PAIN SNOMED Code(s): 03682514 Plan: 1. Continue symptomatic and supportive care 2. Continue aggressive IV hydration 3. Antiemetics as needed 4. Keep n.p.o. except for ice chips and popsicles 5. Protonix 40 mg daily for GI prophylaxis 6. Pain medication as needed 7. Treatment of hypertriglyceridemia per medical team 8. Discussed with patient importance of establishing with PCP for monitoring triglycerides on outpatient basis Thank you for this consultation, we will continue to follow. Dr. Kimberly Lyles I agree with the dictator's note, documented as a scribe by Angelica Cortes.
[2024-04-07 03:59] VITALS: RESP 16
[2024-04-07 08:39] LABS: Basophils # (A) 0.04 X 10*3/uL (0.00-0.10); Basophils % (A) 0.4 %; Eosinophils % (A) 1.1 %; HCT 41.9 % (39.6-50.0); HGB 14.4 g/dL (13.0-17.0); Lymphocytes # (A) 2.72 X 10*3/uL (0.90-5.00); Lymphocytes % (A) 30.5 %; MCH 30.5 pg (27.0-32.0); MCHC 34.4 g/dL (32.0-37.0); MCV 88.8 FL (80.0-97.0); Mean Platelet Volume 8.8 FL (9.5-12.2); Monocytes # (A) 0.77 X 10*3/uL (0.20-1.00); Monocytes % (A) 8.6 %; NRBC Per 100 WBC 0 X 10*3/uL (0.00-0.01); Neutrophils # (A) 5.26 X 10*3/uL (1.80-7.70); Neutrophils % (A) 59.2 %; Platelet Count 289 X 10*3/uL (140-440); RBC 4.72 X 10*6/uL (4.40-5.60); RDW 12.5 % (11.5-14.5); WBC 8.91 X 10*3/uL (4.50-10.00)
[2024-04-07 08:58] LABS: BUN/Creat Ratio 13.29 Ratio (12.00-20.00); Blood Urea Nitrogen 9.3 mg/dL (9.0-27.0); Calcium 9.4 mg/dL (8.7-10.3); Carbon Dioxide 23.9 mmol/L (21.6-31.8); Chloride 104 mmol/L (96-109); Glucose 103 mg/dL (70-110); Potassium 4.1 mmol/L (3.5-5.5); Sodium 139 mmol/L (135-145)
--- NOTE | 2024-04-07 10:20 | NM ---
EXAMINATION TYPE: NM hepatobiliary w CCK DATE OF EXAM: 04/07/2024 COMPARISON: NONE CLINICAL INDICATION: Male, 38 years old with history of RUQ abdominal pain; TECHNIQUE: After the intravenous administration of 4.9 mCi Tc 99m Mebrofenin hepatobiliary scintigrap hy is performed. Immediate images post injection. FINDINGS: There is satisfactory initial accumulation of tracer by the liver. The gallbladder is visualized wit hin 12 minutes. The small bowel activity is noted within 18 minutes. At one hour CCK was administer ed, patient was injected with 2.1 mcg of Kinevac, and gallbladder ejection fraction is calculated at 94%. IMPRESSION: 1. Hypercontractile state. [facility], , 04/07/2024 10:17 AM
--- NOTE | 2024-04-07 10:43 | P.PN ---
Subjective Progress Note Date: 04/07/24 38-year-old man with no significant past medical history presents to the emergency department with new onset abdominal discomfort. Patient states the pain began yesterday and the discomfort has been continually worsening. He describes the discomfort as worsening with food, and occasionally related to pos ition. He first noticed the pain yesterday in his back, however today it has been in the front of his abdomen. He states this morning it was his entire abdomen as the day progressed it was localized more so to the right side, right middle and lower quadrant of his abdomen specifically. He states that at its worst the pain was 8/10 however at this current moment he rates it as a 2/10. He notes that he feels as though he has been constipated, and has been unable to have a bowel movement for a few days even though he has been attempting to do so. He has never had symptoms similar to this before. He states that he was formerly a "very heavy" drinker in which he would drink 1/2 gallon every weekend, and some weeks he would drink on a daily basis. This period of his life lasted for 3+ years. Reports having quit heavy alcohol use several years ago. Patient has no current complaints at this time and has requested being able to eat some food. Labratory review: -WBCs 15.8, Hgb 15, hct 43.7, PLT 310; sodium 135, potassium 4.3, BUN 19, creatinine 0.69, AST 34, ALT 33, alkaline phosphatase 107, total bilirubin 0.5, amylase 59, lipase 63 -UA noncontributory Imaging: -CT abdomen/pelvis showed subtle fat stranding/mesenteric inflammation surrounding the region of the pancreatic head/uncinate process, possibly reflecting acute interstitial edematous pancreatitis in the appropriate clinical setting; hepatic steatosis; chronic diverticulosis; no evidence of nephrolithiasis, urolithiasis or hydronephrosis 04/06/2024 patient seen and examined at bedside. Patient reported abdominal pain has decreased in intensity from admission with pain medication and notes the intensity is led 2/10 without any radiation. He is also experiencing a slight headache that is bitemporal but is nonradiating and had an episode of vomiting that was watery bilious. Vitals overnight were stable. WBC 14.02 hemoglobin 14.8 platelet count 316,000 sodium 138 potassium 4 chloride 105 bicarbonate 21.1 BUN 14.6 creatinine 0.8 glucose 122 plasma lactic acid 0.7 calcium 9.3 ALP 110 AST 28 ALT 28 albumin 4.4 triglyceride 1177 gallbladder ultrasound showed no acute evidence of gallbladder abnormality 04/07/2024 patient seen and examined at bedside. Patient reported abdominal pain has decreased in intensity from admission with pain medication and has improved from yesterday. Vitals overnight were stable. WBC 8.91 hemoglobin 14.5 platelet count 2 89,000 sodium 139 potassium 4.1 BUN 9.3 creatinine 0.7 calcium 9.4 GENERAL: The patient is alert and oriented x3, not in any acute distress. Well d eveloped, well nourished. HEENT: No scleral icterus. No conjunctival pallor. Normocephalic, atraumatic. CARDIOVASCULAR: S1 and S2 present. No murmurs, rubs, or gallops. PULMONARY: Chest is clear to auscultation, no wheezing or crackles. ABDOMEN: Soft, nondistended, normoactive bowel sounds. No palpable organomegaly. Tenderness to deep palpation on the right upper quadrant and right lower selam drant MUSCULOSKELETAL: No joint swelling or deformity. EXTREMITIES: No cyanosis, clubbing, or pedal edema. NEUROLOGICAL: Gross neurological examination did not reveal any focal deficits. SKIN: No rashes. Assessment and plan 38-year-old male with new onset abdominal discomfort presents to the emergency department for further evaluation. Discussed the patient with the emergency department and excepted the admission for further evaluation of this abdominal pain. CT scan abdomen and elevated triglycerides with patient presentation align with acute pancreatitis # Hypertriglyceridemia-induced acute pancreatitis Amylase 59, lipase 63. Patient experiencing right upper and right lower quadrant pain. CT abdomen/pelvis showed subtle fat stranding/mesenteric inflammation surrounding the region of the pancreatic head/uncinate process, possibly reflecting acute interstitial edematous pancreatitis. Triglyceride 1177 which is very elevated -Gallbladder ultrasound no acute evidence of gallbladder abnormality -Continue with lactated Ringer's 130 cc/h -Monitor urine output (>0.51 cc/kg/h) -Advanced diet as tolerated -BMP and CBC at the a.m. -A1c and lipid profile -Continue Ezetimibe 10 mg p.o. daily -Compazine 5 mg IV push every 4 hours as needed for nausea and vomiting -Ondansetron 4 mg IV push every 8 hours as needed for vomiting -Continue pain control with Dilaudid as needed -Continue with Protonix 40 mg IV daily -per GI, HIDA scan today -Surgery following #Constipation -Miralax as needed GI prohylaxis: Protonix 40 mg IV daily DVT prophylaxis: Heparin Subq Dictation was produced using [employer] dictation software. please excuse any grammatical, word or spelling errors. I saw and evaluated the patient during the navarro and critical portions of this encounter, and discussed the case in detail with the resident author of this note, I agree with the Assessment and Plan, and my changes, if any, noted below. Surgery recommends outpatient laparoscopic cholecystectomy for hyperkinetic gallbladder. Lipid panel and A1c ordered. Hopeful plans for discharge today or tomorrow if able to tolerate diet and pain. Objective - Vital Signs Vital signs: Vital Signs Temp 97.8 F 04/07/24 03:01 Pulse 63 04/07/24 03:01 Resp 16 04/07/24 03:01 BP 118/67 04/07/24 03:01 Pulse Ox 98 04/07/24 03:01 FiO2 Intake & Output 04/06/24 04/07/24 04/07/24 18:59 06:59 18:59 Intake Total 0 Balance 0 Intake: Oral 0 Other: # Voids 2 2 # Bowel Movements 1 - Labs CBC & Chem 7: 04/07/24 03:43 04/07/24 03:43 Labs: Abnormal Lab Results - Last 24 Hours (Table) 04/07/24 Range/Units 03:43 MPV 8.8 L (9.5-12.2) FL
--- NOTE | 2024-04-07 11:55 | P.PN ---
Subjective Progress Note Date: 04/07/24 Principal diagnosis: Pancreatitis This a pleasant 38-year-old male who presented to the emergency department yesterday with complaints of abdominal pain that started 2 days ago. He states that pain was an acute onset. He has no history of previous similar symptoms. He had a CT scan of the abdomen pelvis that showed inflammation around the head of the pancreas consistent with pancreatitis. Gastroenterology was consulted for pancreatitis. He denies any alcohol use at this time. States he was a heavy drinker about 2 years ago mostly on the weekends. He denies any previous history of pancreatitis. No new medications that he has been on. Amylase and lipase were within normal limits. He did have elevated triglycerides of 1177. Liver enzymes were normal. He had associated nausea and vomiting most of the abdominal pain is in the mid to right lower abdomen. 04/07/2024 Patient seen and examined today as a follow-up for pancreatitis secondary to hypertriglyceridemia. Patient went down for HIDA scan ordered by general surgery. Patient states abdominal pain is improved. No nausea or vomiting. Labs are unremarkable. Again LFTs were all normal as well as amylase and lipase. Objective - Vital Signs Vital signs: Vital Signs Temp 97.8 F 04/07/24 03:01 Pulse 63 04/07/24 03:01 Resp 16 04/07/24 03:01 BP 118/67 04/07/24 03:01 Pulse Ox 98 04/07/24 03:01 FiO2 Intake & Output 04/06/24 04/07/24 04/07/24 18:59 06:59 18:59 Intake Total 0 Balance 0 Intake: Oral 0 Other: # Voids 2 2 # Bowel Movements 1 - Exam General appearance: The patient is alert, oriented, appears in no acute distress . HET: Head is normocephalic and atraumatic. Conjunctiva pink. Sclera anicteric. Neck: Supple without lymphadenopathy. Abdomen: Soft, mild tenderness, nondistended. Extremities: Normal skin color and turgor. No pedal edema Skin: No rashes, no jaundice Neurological: No focal deficits. Alert and oriented. - Labs CBC & Chem 7: 04/07/24 03:43 04/07/24 03:43 Labs: Abnormal Lab Results - Last 24 Hours (Table) 04/06/24 04/07/24 Range/Units 05:14 03:43 WBC 14.02 H (4.50-10.00) X 10*3/uL MPV 8.9 L 8.8 L (9.5-12.2) FL Immature Gran # 0.05 H (0.00-0.04) X 10*3/uL Neutrophils # 9.84 H (1.80-7.70) X 10*3/uL Monocytes # 1.27 H (0.20-1.00) X 10*3/uL Assessment and Plan (1) Pancreatitis Narrative/Plan: 38-year-old male presenting with abdominal pain with CT evidence of acute pancreatitis with elevated triglycerides. Acute pancreatitis likely secondary to hypertriglyceridemia. Continue with treatment for elevated triglycerides. Discussed with patient importance of establishing with a PCP for outpatient surveillance of triglycerides. Current Visit: Yes Status: Acute Code(s): K85.90 - ACUTE PANCREATITIS WITHOUT NECROSIS OR INFECTION, UNSP SNOMED Code(s): 81170698 (2) Abdominal pain Narrative/Plan: Abdominal pain improved. Current Visit: Yes Status: Acute Code(s): R10.9 - UNSPECIFIED ABDOMINAL PAIN SNOMED Code(s): 47956865 Plan: 1. Continue symptomatic and supportive care 2. Advance to full liquid diet, then advance as tolerated 3. Antiemetics as needed 4. Protonix 40 mg daily for GI prophylaxis 5. Pain medication as needed 6. Encourage ambulation 7. Treatment of hypertriglyceridemia per medical team 8. Discussed with patient importance of establishing with PCP for monitoring triglycerides on outpatient basis 9. No further workup indicated 10. If patient tolerates it advancement in diet he is cleared from gastroente rology for discharge. Thank you for this consultation. Dr. Kimberly Lyles I agree with the dictator's note, documented as a scribe by Angelica Cortes.
--- NOTE | 2024-04-07 12:24 | P.PN ---
Subjective Progress Note Date: 04/07/24 SURGICAL PROGRESS NOTE CHIEF COMPLAINT: Pancreatitis HISTORY OF PRESENT ILLNESS: Patient reports that his pain has improved. He feels hungry. Denies any nausea or vomiting. He he has had bowel movements with MiraLAX. Afebrile. WBC is down from 14-8.91. HIDA scan reporting hypercontractile state. EF of 94% PHYSICAL EXAM: VITAL SIGNS: Reviewed. GENERAL: Well-developed in no acute distress. ABDOMEN: Soft. Nondistended. Nontender. NEUROLOGIC: Alert and oriented. Cranial nerves II through XII grossly intact. ASSESSMENT: 1. Acute pancreatitis 2. Hyperkinetic gallbladder. HIDA with a EF of 94% PLAN: -Agree with advancing diet to full liquids -Dr. Nielson recommends outpatient laparoscopic cholecystectomy for hyperkinetic gallbladder Physician Crisis Therapist note has been reviewed by physician. Signing provider agrees with the documented findings, assessment, and plan of care. Objective - Vital Signs Vital signs: Vital Signs Temp 98.2 F 04/07/24 11:19 Pulse 74 04/07/24 11:19 Resp 16 04/07/24 11:19 BP 127/84 04/07/24 11:19 Pulse Ox 98 04/07/24 11:19 FiO2 Intake & Output 04/06/24 04/07/24 04/07/24 18:59 06:59 18:59 Intake Total 0 Balance 0 Intake: Oral 0 Other: # Voids 2 2 # Bowel Movements 1 - Labs CBC & Chem 7: 04/07/24 03:43 04/07/24 03:43 Labs: Abnormal Lab Results - Last 24 Hours (Table) 04/07/24 Range/Units 03:43 MPV 8.8 L (9.5-12.2) FL
[2024-04-07 14:27] VITALS: BP 116/73; PULSE 72; TEMP 98.8
[2024-04-07 15:31] LABS: Chol/HDL Ratio 6.16 Ratio
--- NOTE | 2024-04-07 15:53 | P.DS ---
Providers Date of admission: 04/05/24 20:06 Attending physician: Kannan Angulo MD Consults: 04/05/24 20:03 Consult Physician Routine Consulting Provider: Leif Nielson Consult Reason/Comments: abp Do you want consulting provider notified?: Yes Consult Physician Routine Consulting Provider: Kathy Lyles Consult Reason/Comments: Inflammation head of pancreas Do you want consulting provider notified?: Yes Primary care physician: Stated None Hospital Course: 38-year-old man with no significant past medical history presents to the emergency department with new onset abdominal discomfort. Patient states the pain began yesterday and the discomfort has been continually worsening. He describes the discomfort as worsening with food, and occasionally related to position. He first noticed the pain yesterday in his back, however today it has been in the front of his abdomen. He states this morning it was his entire abdomen as the day progressed it was localized more so to the right side, right middle and lower quadrant of his abdomen specifically. He states that at its worst the pain was 8/10 however at this current moment he rates it as a 2/10. He notes that he feels as though he has been constipated, and has been unable to have a bowel movement for a few days even though he has been attempting to do so. He has never had symptoms similar to this before. He states that he was formerly a "very heavy" drinker in which he would drink 1/2 gallon every weekend, and some weeks he would drink on a daily basis. This period of his life lasted for 3+ years. Reports having quit heavy alcohol use several years ago. Patient has no current complaints at this time and has requested being able to eat some food. WBCs 15.8, Hgb 15, hct 43.7, PLT 310; sodium 135, potassium 4.3, BUN 19, creatinine 0.69, AST 34, ALT 33, alkaline phosphatase 107, total bilirubin 0.5, amylase 59, lipase 63. CT abdomen/pelvis showed subtle fat stranding/mesenteric inflammation surrounding the region of the pancreatic head/uncinate process, possibly reflecting acute interstitial edematous pancreatitis in the appropriate clinical setting; hepatic steatosis; chronic diverticulosis; no evidence of nephrolithiasis, urolithiasis or hydronephrosis. Patient was admitted for evaluation of acute pancreatitis. Triglycerides were elevated at 1177 and gallbladder ultrasound showed no acute evidence patient is a determined that pancreatitis is caused by hypertriglyceridemia. Patient was given appropriate pain control with Dilaudid, IV fluids, MiraLAX for constipation as needed, ondansetron and Compazine and ezetimibe. Lipid profile and A1c ordered to assessment of risk factors. Placed on n.p.o. and diet was advanced as tolerated by patient. GI and general surgery consulted. HIDA scan was ordered for gallbladder function evaluation is found to have hypercontractile gallbladder with ejection fraction of 94%. Patient symptoms improved and leukocytosis normalized throughout hospital stay. Patient was cleared for discharge today. He was prescribed oral percocet and ezetimibe, and advised to follow-up with general surgery for possible elective laparoscopic cholecystectomy, and with PCP for discussion of lab results on outpatient basis. Assessment: #. Hypertriglyceridemia-induced acute pancreatitis #. Constipation #. Hyperkinetic gallbladder on HIDA scan Patient Condition at Discharge: Good Plan - Discharge Summary New Discharge Prescriptions: New oxyCODONE HCL/ACETAMINOPHEN [Percocet 10-325 mg] 1 tab PO Q4HR PRN 3 Days #18 tab PRN Reason: Breakthrough Pain Acetaminophen Tab [Tylenol] 650 mg PO Q6HR PRN tab PRN Reason: Fever And/ Or Pain Ezetimibe [Zetia] 10 mg PO DAILY #30 tab Discharge Medication List Acetaminophen Tab [Tylenol] 650 mg PO Q6HR PRN tab 04/07/24 [Rx] Ezetimibe [Zetia] 10 mg PO DAILY #30 tab 04/07/24 [Rx] oxyCODONE HCL/ACETAMINOPHEN [Percocet 10-325 mg] 1 tab PO Q4HR PRN 3 Days #18 tab 04/07/24 [Rx] Follow up Appointment(s)/Referral(s): Kiran Galvin MD [REFERRING] - 3 Days Leif Nielson MD [STAFF PHYSICIAN] - 1 Week Activity/Diet/Wound Care/Special Instructions: Diet: Low fat Discharge Disposition: HOME SELF-CARE
== END 2024-04-07 17:42 | disposition home or self-care (01) ==
LOC: EC 16:42 → 6NMEDSUR 20:06
PROVIDERS: ADMIT Internal Medicine; ATTEND Internal Medicine
DX: E78.1 Pure hyperglyceridemia (principal); K85.80 Other acute pancreatitis without necrosis or infection; K59.00 Constipation, unspecified; K82.8 Other specified diseases of gallbladder; Z87.891 Personal history of nicotine dependence
CPT/HCPCS: 96376 ×2; 96374 ×2; 96375 ×2; 99285; 36415; 80061; 80053 ×2; 80048; 82150 ×2; 83605; 83615; 83690 ×2; 84478; 85025 ×3; 85610; 85730; 81003; 83036; 76705; 74176; 78227; G0378 ×3; A9537; J0780; J2765; J2405; J2805; J3490; J1885; J1171 ×2; J2470 ×3